=== PATIENT | female | born 1965 | race Caucasian/White ===

== ENCOUNTER → 2018-12-28 | Day surgery (SDC) | payer BC ==
[~2018-12-28] MED LIST: Lactated Ringers 1,000 ML IV SCH; Propofol 200 MG/20 ML SDV IV ONE
[2018-12-28 12:51] VITALS: BP 121/72
--- NOTE | 2018-12-28 15:09 | OR ---
DATE OF OPERATION: 12/28/2018 PREOPERATIVE DIAGNOSIS: SCREENING COLONOSCOPY. POSTOPERATIVE DIAGNOSIS: SCREENING COLONOSCOPY. SURGEON: Leo No MD PROCEDURE: FULL-LENGTH COLONOSCOPY. ANESTHESIA: MAC via CORE PLACER. COMPLICATIONS: None. SPECIMEN: None. FINDINGS: 1. Full-length colonoscopy. 2. Moderate to severe left-sided diverticulosis. RECOMMENDATIONS: Followup colonoscopy every 10 years. INDICATIONS: The patient was seen by her primary provider and a screening colonoscopy recommended due to her age. DESCRIPTION OF PROCEDURE: The patient was prepped and draped, placed in the left lateral decubitus position. A lubricated Olympus colonoscope was inserted and easily advanced to the cecum. Direct visualization of the ileocecal valve and appendiceal orifice was accomplished. The bowel prep was excellent. Upon withdrawal of the scope, the right and transverse colon were unremarkable. The patient has moderate to severe diverticular disease extending from the mid to distal descending colon all the way through the rectosigmoid junction. There were no acute inflammatory changes. I could find no signs of any polyps, masses, ulcerations, or bleeding sites. No vascular abnormalities or signs of colitis. The rectal vault was benign. Retroflexion of the scope in the rectum showed no anal lesions. Air was suctioned and the scope removed without complication. DEEP/ARABELLA /[id number]
== END ==
LOC: CC.SDS 10:33
PROVIDERS: ATTEND Family Medicine
DX: Z12.11 Encounter for screening for malignant neoplasm of colon (principal); K57.30 Diverticulosis of large intestine without perforation or abscess without bleeding; F41.9 Anxiety disorder, unspecified; F32.9 Major depressive disorder, single episode, unspecified; E03.8 Other specified hypothyroidism; E78.5 Hyperlipidemia, unspecified; E55.9 Vitamin D deficiency, unspecified; G89.29 Other chronic pain; M54.2 Cervicalgia; M54.6 Pain in thoracic spine; Z79.1 Long term (current) use of non-steroidal anti-inflammatories (NSAID); Z79.899 Other long term (current) drug therapy
CPT/HCPCS: G0121; J2704; J7120

== ENCOUNTER → 2020-12-31 | Day surgery (SDC) | payer BC, OTHER ==
[~2020-12-31] MED LIST changes: +Dexamethasone 4 MG/ML SDV ONE; +Ketorolac 30 MG/ML SDV ONE; -Lactated Ringers 1,000 ML IV SCH; +Lidocaine 1% 30 ML SDV ONE; +Lidocaine 2% 5 ML SDV ONE; +Midazolam 1 MG/ML 2 ML SDV ONE; +Ondansetron 4 MG/2 ML SDV ONE; -Propofol 200 MG/20 ML SDV IV ONE; +Propofol 200 MG/20 ML SDV ONE; +fentaNYL 100 MCG/2 ML SDV ONE
[2020-12-31] MEDS: Lactated Ringers 1,000 ML IV SCH (08:19)
[2020-12-31 11:43] VITALS: BP 128/81; PULSE 70
--- NOTE | 2020-12-31 16:02 | OR ---
DATE OF OPERATION: 12/31/2020 PREOPERATIVE DIAGNOSIS: ANAL FISSURE. POSTOPERATIVE DIAGNOSIS: ANAL FISSURE. SURGEON: Juan Becerril MD PROCEDURE: EXAM UNDER ANESTHESIA AND LEFT LATERAL INTERNAL SPHINCTEROTOMY. ANESTHESIA: Local plus MAC. SPECIMEN: None. INDICATIONS: This 55-year-old female has symptoms consistent with anal fissure. Dietary and physical changes have not improved her. FINDINGS: Large posterior anal fissure. DESCRIPTION OF PROCEDURE: After adequate preparation, an anoscope was inserted into the rectum. Examination of posterior anal canal showed a moderately large and wide anal fissure with a denuded mucosa over the internal muscle. A spot on the left lateral side of the anal canal was chosen and the skin was incised. This was then carried down along the mucosa and the internal muscle to cut at least 3[address] through the internal sphincter. Hemostasis was controlled and the mucosa was reapproximated using a running 3-0 Vicryl suture. No other abnormalities were noted. The patient was taken to recovery room. RAMY/ARABELLA /[id number]
== END ==
LOC: CC.SDS 07:39
PROVIDERS: ATTEND Surgery
DX: K60.2 Anal fissure, unspecified (principal); E78.5 Hyperlipidemia, unspecified; E66.9 Obesity, unspecified; E03.9 Hypothyroidism, unspecified; K21.9 Gastro-esophageal reflux disease without esophagitis; Z79.899 Other long term (current) drug therapy; Z79.890 Hormone replacement therapy; Z68.33 Body mass index [BMI] 33.0-33.9, adult
CPT/HCPCS: J1100; J1885; J2250; J2405; J2704; J3010; J7120